=== PATIENT | male | born 1995 | race Caucasian/White ===

== ENCOUNTER 2017-03-01 10:55 | Emergency (ER) | payer MEDICARE ==
--- NOTE | 2017-03-01 11:19 | ED Physician Chart ---
Chief Complaint/HPI - Patient Information Date Seen:: 03/01/17 Time Seen:: 11:00 Chief Complaint:: sore throat History of Present Illness:: THIS IS A 21 YO MALE WITH A SORE THROAT, LEFT EARACHE AND MILD CHEST CONGESTION. HE DENIES FEVER TODAY BUT HAD SOME YESTERDAY. HE DENIES ANY PREVIOUS SORE THROAT OF LUNG CONGESTION. HE DENIES SMOKING AND USING DRUGS. HE DENIES ALL OTHER MEDICAL PROBLEMS. Allergies:: Allergies Allergy/AdvReac Type Severity Reaction Status Date / Time No Known Allergies Allergy Verified 03/01/17 11:01 Vitals:: Vital Signs - 8 hr 03/01/17 03/01/17 10:55 11:10 Temp 97.0 F 97.0 F HR 72 72 RR 16 16 BP 119/70 119/70 O2 Sat % 96 96 Historian:: Patient Review:: Nurse's Note Reviewed Review of Systems - Review of Systems General/Constitutional: Fever, No chills, No weight loss, No weakness, No diaphoresis, No edema, No loss of appetite Skin: No skin lesions, No rash, No bruising Head: No headache, No light-headedness Eyes: No loss of vision, No pain, No diplopia ENT: Earache, No nasal drainage, Sore throat, No tinnitus Neck: No neck pain, No swelling, No thyromegaly, No stiffness, No mass noted Cardio Vascular: No chest pain, No palpitations, No PND, No orthopnea, No edema Pulmonary: No SOB, Cough, No sputum, No wheezing GI: No nausea, No vomiting, No diarrhea, No pain, No melena, No hematochezia, No constipation, No hematemesis G/U: No dysuria, No frequency, No hematuria Musculoskeletal: No bone or joint pain, No back pain, No muscle pain Endocrine: No polyuria, No polydipsia Psychiatric: No prior psych history, No depression, No anxiety, No suicidal ideation Hematopoietic: No bruising, No lymphadenopathy Allergic/Immuno: No urticaria, No angioedema Neurological: No syncope, No focal symptoms, No weakness, No paresthesia, No headache, No seizure, No dizziness, No confusion, No vertigo Past Medical History - Past Medical History Obtainable: Yes Past Medical History: No significant medical hx Family History: None Social History: Non Smoker, No Alcohol, No Drug Use, Single Surgical History: None Psychiatricy History: None Medication: Reviewed Family Medical History - Family Member Mother History Unknown: Yes Other Medical History: denies family medical history Physical Exam - Physical Examination General/Constitutional: Awake, Well-developed, well-nourished, Alert, No distress, GCS 15, Non-toxic appearing, Ambulatory Head: Atraumatic Eyes: Lids, conjuctiva normal, PERRL, EOMI Skin: Nl inspection, No rash, No skin lesions, No ecchymosis, Well hydrated, No lymphadenopathy ENMT: External ears, nose nl, TM canals nl (THE LEFT CANAL IS RED AND THE TM HAS FLUID BEHIND IT.), Nasal exam nl, Lips, teeth, gums nl, Oropharynx nl (RED AND SWOLLEN) Neck: Nontender, Full ROM w/o pain, No JVD, No nuchal rigidity, No bruit, No mass, No stridor Respiratory: Nl effort/Exclusion, Clear to Auscultation, No Wheeze/Rhonchi/Rales Cardio Vascular: RRR, No murmur, gallop, rubs, NL S1 S2 GI: No tenderness/rebounding/guarding, No organomegaly, No hernia, Normal BS's, Nondistended, No mass/bruits, No McBurney tenderness : No CVA tenderness Extremities: No tenderness or effusion, Full ROM, normal strength in all extremities, No edema, Normal digits & nails Neuro/Psych: Alert/oriented, DTR's symmetric, Normal sensory exam, Normal motor strength, Judgement/insight normal, Mood normal, Normal gait, No focal deficits Misc: normal gait, Normal back, No paraspinal tenderness ED Septic Shock - . Is Septic Shock (SBP<90, OR Lactate>4 mmol\L) present?: No - <6hrs of presentation: Vital Signs: Vital Signs - 8 hr 03/01/17 03/01/17 10:55 11:10 Temp 97.0 F 97.0 F HR 72 72 RR 16 16 BP 119/70 119/70 O2 Sat % 96 96 Reassessment (Disposition) - Reassessment Reassessment Condition:: Unchanged - Diagnosis Diagnosis:: ACUTE PHARYNGITIS LEFT OTITIS MEDIA - Aftercare/Follow up Instructions Aftercare/Follow-Up Instructions:: Counseled pt regarding lab results/diagnosis & need follow up, Refer to Discharge Instructions, Counseled pt & family regarding lab results/diagnosis & need follow up - Patient Disposition Discharge/Transfer:: Home Condition at Disposition:: Unchanged ED Discharge Plan - Patient Disposition Admit/Discharge/Transfer: PT DISCHARGED HOME Condition at Disposition: Unchanged Prescriptions: Azithromycin [Zithromax Tri-Will] 500 mg PO DAILY #0 tablet Prednisone 10 mg PO BID #0 tab.ds.[id number]
== END 2017-03-01 11:10 | disposition home or self-care (01) ==
LOC: ER 10:55
DX: J02.9 Acute pharyngitis, unspecified (principal); H66.92 Otitis media, unspecified, left ear
CPT/HCPCS: Z7502

== ENCOUNTER 2017-03-08 12:16 | Emergency (ER) | payer MEDICARE ==
--- NOTE | 2017-03-08 13:30 | ED Physician Chart ---
Chief Complaint/HPI - Patient Information Date Seen:: 03/08/17 Time Seen:: 12:55 Chief Complaint:: left earache History of Present Illness:: History of present illness: Patient was seen previously last week for a URI- like illness for which she was prescribed a Z-Will. Patient states that his prior complaints of sore throat, cough, runny nose, have all improved but he still has fullness in his left ear and desires a recheck. Patient has no other symptoms of any kind. Allergies:: Allergies Allergy/AdvReac Type Severity Reaction Status Date / Time No Known Allergies Allergy Verified 03/08/17 12:45 Vitals:: Vital Signs - 8 hr 03/08/17 03/08/17 12:46 12:53 Temp 98.7 F 98.7 F HR 82 82 RR 16 16 BP 131/80 131/80 O2 Sat % 97 97 Review of Systems - Review of Systems General/Constitutional: Fever (review of systems is completely negative except for that mentioned in the history of present illness.) Past Medical History - Past Medical History Obtainable: Yes Past Medical History: No significant medical hx Family History: Heart disease Social History: Non Smoker, Single Surgical History: other (ortho) Medication: None Family Medical History - Family Member Mother Ethnicity: Non- Living Status: Still Living Hx Family Coronary Artery Disease: Yes Physical Exam - Physical Examination General/Constitutional: Awake, Well-developed, well-nourished, Alert, No distress, GCS 15, Non-toxic appearing, Ambulatory Eyes: Lids, conjuctiva normal, PERRL, EOMI Skin: Nl inspection, No rash, No skin lesions, No ecchymosis, Well hydrated, No lymphadenopathy ENMT: External ears, nose nl (the only pertinent physical findings today involve a mild serous otitis change on the right tympanic membrane and more bulging serous otitis appearance on the left tympanic membrane. There are no other pertinent medical findings today.) Neck: Nontender, Full ROM w/o pain, No JVD, No nuchal rigidity, No bruit, No mass, No stridor Respiratory: Nl effort/Exclusion, Clear to Auscultation, No Wheeze/Rhonchi/Rales Cardio Vascular: RRR, No murmur, gallop, rubs, NL S1 S2 ED Septic Shock - . Is Septic Shock (SBP<90, OR Lactate>4 mmol\L) present?: No - <6hrs of presentation: Vital Signs: Vital Signs - 8 hr 03/08/17 03/08/17 12:46 12:53 Temp 98.7 F 98.7 F HR 82 82 RR 16 16 BP 131/80 131/80 O2 Sat % 97 97 Reassessment (Disposition) - Reassessment Reassessment Condition:: Unchanged - Diagnosis Diagnosis:: Bilateral serous otitis media, left greater than right, which appears historically to be related to a recent URI treated with antibiotics. - Aftercare/Follow up Instructions Aftercare/Follow-Up Instructions:: Counseled pt regarding lab results/diagnosis & need follow up, Refer to Discharge Instructions - Patient Disposition Discharge/Transfer:: Home ED Discharge Plan - Patient Disposition Admit/Discharge/Transfer: PT DISCHARGED HOME Condition at Disposition: Stable Instructions: Serous Otitis Media Accepting Physician: Nader Burns [Active] - Emory Mendoza [Active] -
== END 2017-03-08 12:50 | disposition home or self-care (01) ==
LOC: ER 12:16
DX: H65.93 Unspecified nonsuppurative otitis media, bilateral (principal)
CPT/HCPCS: Z7502